=== PATIENT | female | born 1995 | race American Indian/Alaskan Native ===

== ENCOUNTER → 2021-05-07 | Emergency (ER) | payer OTHER ==
[~2021-05-07] VITALS: Ht 172.7 cm; Wt 81.8 kg
[2021-05-07 20:12] LABS: BASOPHILS # (AUTO) 0.1 X10'3 (0-0.2); BASOPHILS % (AUTO) 0.7 % (0-1); EOSINOPHILS # (AUTO) 0.1 X10'3 (0-0.9); EOSINOPHILS % (AUTO) 1.1 % (0-6); HEMATOCRIT 42.7 % (35.0-45.0); HEMOGLOBIN 14.9 g/dl (12.0-16.0); LYMPHOCYTES # (AUTO) 2.7 X10'3 (1.1-4.8); LYMPHOCYTES % (AUTO) 29.2 % (21-51); MEAN CORPUSCULAR HEMOGLOBIN 32.2 PG (27.0-31.0); MEAN CORPUSCULAR HGB CONC 34.9 g/dL (33.0-36.5); MEAN CORPUSCULAR VOLUME 92.4 FL (78-98); MEAN PLATELET VOLUME 7.9 FL (7.4-10.4); MONOCYTES # (AUTO) 0.7 X10'3 (0-0.9); MONOCYTES % (AUTO) 7.3 % (2-12); NEUTROPHILS # (AUTO) 5.8 X10'3 (1.8-7.7); NEUTROPHILS % (AUTO) 61.7 % (42-75); PLATELET COUNT 295 X10'3 (140-440); RED BLOOD COUNT 4.62 X10'6 (4.20-5.60); WHITE BLOOD COUNT 9.4 X10'3 (4.5-11.0)
[2021-05-07 20:26] LABS: ALANINE AMINOTRANSFERASE 24 U/L (12-78); ALBUMIN 4.4 G/DL (3.4-5.0); ALBUMIN/GLOBULIN RATIO 1.6 (1.1-1.5); ALKALINE PHOSPHATASE 70 IU/L (46-116); ANION GAP 10 (8-16); ASPARTATE AMINO TRANSFERASE 12 U/L (10-37); BILIRUBIN,TOTAL 0.3 MG/DL (0.1-1.0); BLOOD UREA NITROGEN 9 MG/DL (7-18); BUN/CREATININE RATIO 10.5 (6.6-38.0); CALCIUM 8.8 MG/DL (8.5-10.1); CHLORIDE 108 MMOL/L (99-107); CREATININE 0.86 MG/DL (0.40-0.90); POTASSIUM 3.8 MMOL/L (3.5-5.1); SODIUM 144 MMOL/L (135-145); TOTAL CARBON DIOXIDE 26.2 MMOL/L (24-32); TOTAL PROTEIN 7.2 G/DL (6.4-8.2); eGFR 80 ML/MIN
[2021-05-07 20:35] LABS: GLUCOSE 118 MG/DL (70-104)
[2021-05-07 23:39] VITALS: BP 116/86
== END | disposition home or self-care (01) ==
LOC: ER 18:57
DX: I35.0 Nonrheumatic aortic (valve) stenosis (principal); Z88.0 Allergy status to penicillin; Z88.2 Allergy status to sulfonamides
CPT/HCPCS: 36415; 71045; 80053; 83880; 84484; 85025; 93005; 99285

== ENCOUNTER 2021-05-28 12:01 | Day surgery (SDC) | payer OTHER ==
[2021-05-23 12:57] LABS: BASOPHILS % (AUTO) 0.5 % (0-1); EOSINOPHILS # (AUTO) 0.1 X10'3 (0-0.9); EOSINOPHILS % (AUTO) 0.7 % (0-6); HEMATOCRIT 43.1 % (35.0-45.0); HEMOGLOBIN 14.5 g/dl (12.0-16.0); LYMPHOCYTES # (AUTO) 2.2 X10'3 (1.1-4.8); LYMPHOCYTES % (AUTO) 27.8 % (21-51); MEAN CORPUSCULAR HEMOGLOBIN 31.4 PG (27.0-31.0); MEAN CORPUSCULAR HGB CONC 33.7 g/dL (33.0-36.5); MEAN CORPUSCULAR VOLUME 93.1 FL (78-98); MEAN PLATELET VOLUME 8.1 FL (7.4-10.4); MONOCYTES # (AUTO) 0.5 X10'3 (0-0.9); NEUTROPHILS # (AUTO) 5.2 X10'3 (1.8-7.7); PLATELET COUNT 282 X10'3 (140-440); RED BLOOD COUNT 4.62 X10'6 (4.20-5.60)
[2021-05-23 13:06] LABS: ALBUMIN 4.2 G/DL (3.4-5.0); ANION GAP 5 (8-16); BLOOD UREA NITROGEN 9 MG/DL (7-18); BUN/CREATININE RATIO 12.5 (6.6-38.0); CALCIUM 8.8 MG/DL (8.5-10.1); CHLORIDE 105 MMOL/L (99-107); CREATININE 0.72 MG/DL (0.40-0.90); GLUCOSE 91 MG/DL (70-104); SODIUM 141 MMOL/L (135-145); TOTAL CARBON DIOXIDE 31.3 MMOL/L (24-32); eGFR > 90 ML/MIN
[2021-05-23 13:10] LABS: PARTIAL THROMBOPLASTIN TIME 31 SECONDS (22-32)
[~2021-05-28] VITALS: Ht 172.7 cm; Wt 83.9 kg
[2021-05-28] VITALS (9 sets, daily range): BP systolic 99–118; BP diastolic 58–78
[2021-05-28] MEDS ORDERED: LORazepam 0.5 MG tablet PO PRN (12:20)
[2021-05-28] MEDS ORDERED: normal saline 1,000 ML IV SCH (12:20)
[2021-05-28] MEDS ORDERED: diphenhydrAMINE 25mg capsule PO PRN (12:20)
[2021-05-28] MEDS ORDERED: MELA10TA2 PO (12:48)
[2021-05-28] MEDS ORDERED: MULT-1249 PO (12:48)
[2021-05-28] MEDS ORDERED: BIOT1CAP3 PO (12:48)
[2021-05-28] MEDS ORDERED: VORT5TAB PO (12:48)
[2021-05-28] MEDS ORDERED: midazolam 1 mg/ML 2ml injection ONE ×2 (14:25→15:07)
[2021-05-28] MEDS ORDERED: nitroGLYCERIN-Tridil 50MG/D5W 250 ML IV ONE (14:25)
[2021-05-28] MEDS ORDERED: verapamil 2.5 mg/ml inj IV ONE (14:26)
[2021-05-28] MEDS ORDERED: iohexol 350MG/ML 100ml bottle IV ONE (14:26)
[2021-05-28] MEDS ORDERED: heparin 1,000unit/ml 10ml vial 10 ML ONE (14:26)
[2021-05-28] MEDS ORDERED: fentaNYL/PF 50MCG/1 ML 2ML syringe ONE (14:26)
[2021-05-28] MEDS ORDERED: LIDOcaine 1% (10mg/ml)w/preservative injection 20ml MDV ONE (14:26)
[2021-05-28] MEDS ORDERED: ondansetron/PF 4mg/2ml inj IV PRN (15:55)
[2021-05-28] MEDS ORDERED: HYDROcodone/acetaminophen 10/325mg tab PO PRN (15:55)
[2021-05-28] MEDS ORDERED: proCHLORperazine 10 MG/2 ml inj IV PRN (15:55)
[2021-05-28] MEDS ORDERED: HYDROcodone/acetaminophen 5mg/325mg tablet PO PRN (15:55)
[2021-05-28] MEDS ORDERED: acetaminophen 325mg tablet PO PRN (15:55)
[2021-05-28] MEDS ORDERED: OXAZEpam 15mg capsule PO PRN (15:55)
--- NOTE | 2021-05-28 17:15 | NUR ---
Patient c/o sudden onset of numbness to right wrist s/p vasc band removal. Call made to Dr. Perez, message left on voicemail.
--- NOTE | 2021-05-28 17:45 | NUR ---
Patient states that feeling returning to right hand, patient given education on perfusion to right hand and s/sx of decreased blood flow. patient expressed understanding.
[2021-05-28] MEDS ORDERED: ACETYLCYSTEINE 200 MG/1 ML 4 ML ORAL SOLUTION PO SCH (20:00)
== END 2021-05-28 18:05 | disposition home or self-care (01) ==
LOC: SSTAY O 12:01
PROVIDERS: ATTEND Internal Medicine Interventional Cardiology
DX: R94.39 Abnormal result of other cardiovascular function study (principal); I35.0 Nonrheumatic aortic (valve) stenosis; R07.9 Chest pain, unspecified; Z79.01 Long term (current) use of anticoagulants; Z79.899 Other long term (current) drug therapy
CPT/HCPCS: 36415; 80048; 85025; 85610; 85730; 93005; 93458; C1769; C1894; J1644; J2001; J2250; J3010; J7030; Q9967; 99152; 99153; A4620; J3490